=== PATIENT | female | born 1930 | race Caucasian/White ===

== ENCOUNTER 2016-08-16 08:40 | Inpatient (IN) | payer BC, OTHER ==
[~2016-08-16] VITALS: Ht 154.9 cm; Wt 38.9 kg
[~2016-08-16 08:40] MED LIST: ADVIN25050 INH; ASPCH81X PO; CALCTAB5 PO; KFL250 PO; LSN10 PO; RIVA4.6D TD; TPRSR/25 PO; ZOLE5INJ INJ
[2016-08-16] MEDS ORDERED: SODIUM CHLORIDE 0.9% 1000ML 1,000 ML IV SCH (09:05)
--- NOTE | 2016-08-16 09:15 | DIAGNOSTIC IMAGING REPORT ---
CT HEAD WITHOUT CONTRAST (CT) CLINICAL HISTORY: Acute change in mental status. Possible stroke COMPARISON STUDY: 05/20/2016 TECHNIQUE: Axial CT of the brain is performed from the vertex to the skull base. IV contrast was not administered for this examination. CT DOSE: 537.48 mGy.cm FINDINGS: No intra or extra-axial mass lesions are visualized. There is no CT evidence of acute cortical infarction. There is no evidence of midline shift. There is no acute hemorrhage. No calvarial fractures are visualized. There are patchy white matter hypodensities likely on a small vessel basis. There is stable mild ventricular dilatation, proportional to the degree of volume loss. There is asymmetric atrophy involving the left frontal and temporal lobes. This remain stable. There is no evidence of acute sinusitis IMPRESSION: No acute intracranial findings Electronically signed by: Aime Flores M.D. 08/16/2016 9:13 AM
[2016-08-16 09:37] LABS: PARTIAL THROMBOPLASTIN RATIO 1.1; PROTHROMBIN TIME (PATIENT) 10.6 SECONDS (9.0-12.0)
[2016-08-16 09:43] LABS: HEMATOCRIT 37.4 % (37-47); MEAN CORPUSCULAR HEMOGLOBIN 31.9 pg (25-34); MEAN PLATELET VOLUME 10.1 fL (7.4-10.4); PLATELET COUNT 228 K/uL (130-400); RED BLOOD COUNT 3.98 M/uL (4.2-5.4); WHITE BLOOD COUNT 4.42 K/uL (4.8-10.8)
[2016-08-16 09:50] LABS: BLOOD UREA NITROGEN 19 mg/dl (7-18); BUN/CREATININE RATIO 17.6 (10-20); CALCIUM 8.7 mg/dl (8.5-10.1); CARBON DIOXIDE 25 mmol/L (21-32); CHLORIDE 101 mmol/L (98-107); GLUCOSE 124 mg/dl (70-99); POTASSIUM 3.8 mmol/L (3.5-5.1); SODIUM 136 mmol/L (136-145)
[2016-08-16 09:58] LABS: MANUAL MICROSCOPIC REQUIRED? YES; URINE APPEARANCE CLEAR (CLEAR); URINE BILIRUBIN NEG (NEG); URINE COLOR YELLOW; URINE NITRITE NEG (NEG); UROBILINOGEN NEG (NEG)
[2016-08-16 10:03] LABS: REVIEW REQ? NO
[2016-08-16 10:17] LABS: BASO % 0.5 %; BASO ABS # 0.02 K/uL (0-0.2); COMPLETE YES; EOS % 2.9 %; IG% 0.2 %; LYMPH % 57.7 %; MONO % 17.2 %; NEUT % 21.5 %; SMUDGE CELLS PRESENT
[2016-08-16 10:45] LABS: URINE RBC 0-4 /hpf (0-4)
[2016-08-16 10:46] LABS: URINE BACTERIA 1+ (NEG)
[2016-08-16 10:47] LABS: ZZURINE CULT IF INDIC CATH YES
--- NOTE | 2016-08-16 11:13 | DIAGNOSTIC IMAGING REPORT ---
CHEST ONE VIEW PORTABLE CLINICAL HISTORY: change in ms dyspnea COMPARISON STUDY: 05/20/2016 FINDINGS: Lungs are considered clear. Stable emphysematous change. Thoracolumbar scoliosis similar to the prior study. IMPRESSION: Chronic and emphysematous change. No acute process. Electronically signed by: Viral Ivy M.D. 08/16/2016 11:11 AM
--- NOTE | 2016-08-16 12:09 | EMERGENCY ROOM VISIT NOTE ---
History Report prepared by Marbin: Elisa Spence Under the Supervision of: Dr. Sam Lafleur D.O. First contact with patient: 08:53 Chief Complaint: ALTERED MENTAL STATUS Stated Complaint: STOKE SYMPTOMS Nursing Triage Summary: PT HERE FROM HOME VIA ALS WITH CONFUSION AND ALTERED MENTAL STATUS. STATES PT WOKE UP THIS AM AND WAS ACTING PER HER NORMAL. AROUND 0800 PT BEGAN TO STARE AND WAS DAZED. PT NOT ANSWERING ANY QUESTIONS, RESPOND WAS INAPPROPRIATELY OR INCOMPREHENSIBLE. History of Present Illness The patient is an 86 year old female arriving by ambulance who presents to the Emergency Room with complaints of as per EMS report of an altered mental status which began 1 hour prior to arrival. Currently, the patient is not answering questions appropriately and she is not able to follow commands. When asked questions, the patient is answering with broken, incorrect words and she laughs when asked to raise her arms, legs, or touch her nose. Per EMS report, the patient woke up this morning and was acting at baseline. 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 Patient then lowered herself to the ground and became incomprehensible, so the ambulance was called by . Patient was not reported to have unilateral or generalized weakness throughout the episode. Speech is broken but not slurred. No facial droop reported. 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 Complete ROS unobtainable secondary to AMS. Source of History: EMS, nursing staff History Limited By: AMS Onset: 0800 Position: head Review of Systems Complete ROS unobtainable secondary to AMS. Past Medical & Surgical Medical Problems: (1) Hypertensive crisis (2) Rectal bleed Family History Patient reports no known family medical history. Social History Smoking Status: Never Smoker Drug Use: none Marital Status: Occupation Status: retired Current/Historical Medications Scheduled Calcium (Caltrate), 600 MG PO BID Fluticasone Prop/Salmeterol (Advair Diskus 250/50 Mcg *), 1 PUFF INH BID Metoprolol Succinate (Metoprolol Succinate ER), 25 MG PO DAILY Rivastigmine Tartrate (EXELON 4.6MG/24 Hr), 1 EA TD DAILY Zoledronic Acid (Reclast), 1 DOSE INJ YEARLY Allergies Coded Allergies: Azithromycin (Verified Allergy, Intermediate, GENERALIZED RASH, 08/16/16) Erythromycin (Verified Allergy, Intermediate, GENERALIZED RASH, 08/16/16) Penicillins (Verified Allergy, Intermediate, GENERALIZED RASH; AMOXICILLIN , 08/16/16) Sulfamethoxazole (Verified Allergy, Intermediate, GENERALIZED RASH, 08/16/16 ) Trimethoprim (Verified Allergy, Intermediate, GENERALIZED RASH, 08/16/16) Animal Dander (Verified Allergy, Mild, WATERY EYES, ITCHY, 08/16/16) DOG, CAT, HORSE HAIR Doxycycline (Verified Allergy, Mild, unknown, 08/16/16) Grass (Verified Allergy, Mild, WATERY EYES, ITCHY, 08/16/16) POLLEN (Verified Allergy, Mild, WATERY EYES, ITCHY, 08/16/16) Tramadol (Verified Allergy, Mild, unknown, 08/16/16) Celecoxib (Verified Allergy, Unknown, ., 08/16/16) Ciprofloxacin (Unverified Allergy, Unknown, unknown, 08/16/16) Physical Exam Vital Signs Date Time Temp Pulse Resp B/P Pulse Ox O2 Delivery O2 Flow Rate FiO2 08/16/16 10:47 77 18 142/80 08/16/16 10:08 81 24 157/108 93 Room Air 08/16/16 09:50 77 08/16/16 09:45 83 24 139/99 95 Room Air 08/16/16 09:30 75 18 145/81 94 Room Air 08/16/16 09:30 93 Room Air 08/16/16 08:49 36.7 76 16 141/77 92 Room Air Physical Exam CONSTITUTIONAL/VITAL SIGNS: Reviewed / noted above. GENERAL: Non-toxic in appearance. INTEGUMENTARY: Warm, dry, and [place]. HEAD: Normocephalic. EYES: without scleral icterus or trauma. ENT/OROPHARYNX: clear and moist. LYMPHADENOPATHY/NECK: Is supple without lymphadenopathy or meningismus. RESPIRATORY: Lungs clear and equal. CARDIOVASCULAR: Regular rate and rhythm. GI/ABDOMEN: Soft and nontender. No organomegaly or pulsatile mass. No rebound or guarding. Normal bowel sounds. EXTREMITIES: Warm and well perfused. BACK: No CVA tenderness. NEUROLOGICAL: Awake, alert, oriented. Uses wrong words with answering questions. She has difficulty at times following commands. No obvious focal deficits in the arms or legs. No appreciated facial weakness. PSYCHIATRIC: normal affect. MUSCULOSKELETAL: Normally developed with good muscle tone. Medical Decision & Procedures ER Provider Diagnostic Interpretation: CT results as stated below per my review and radiologist interpretation: CT HEAD WITHOUT CONTRAST (CT) CLINICAL HISTORY: Acute change in mental status. Possible stroke COMPARISON STUDY: 05/20/2016 TECHNIQUE: Axial CT of the brain is performed from the vertex to the skull base. IV contrast was not administered for this examination. CT DOSE: 537.48 mGy.cm FINDINGS: No intra or extra-axial mass lesions are visualized. There is no CT evidence of acute cortical infarction. There is no evidence of midline shift. There is no acute hemorrhage. No calvarial fractures are visualized. There are patchy white matter hypodensities likely on a small vessel basis. There is stable mild ventricular dilatation, proportional to the degree of volume loss. There is asymmetric atrophy involving the left frontal and temporal lobes. This remain stable. There is no evidence of acute sinusitis IMPRESSION: No acute intracranial findings Electronically signed by: Aime Flores M.D. 08/16/2016 9:13 AM Laboratory Results 08/16/16 08:50 Red Blood Count 3.98, Mean Corpuscular Volume 94.0, Mean Corpuscular Hemoglobin 31.9, Mean Corpuscular Hemoglobin Concent 34.0, Mean Platelet Volume 10.1, Neutrophils (%) (Auto) 21.5, Lymphocytes (%) (Auto) 57.7, Monocytes (%) (Auto) 17.2, Eosinophils (%) (Auto) 2.9, Basophils (%) (Auto) 0.5, Neutrophils # (Auto ) 0.95, Lymphocytes # (Auto) 2.55, Monocytes # (Auto) 0.76, Eosinophils # (Auto ) 0.13, Basophils # (Auto) 0.02 08/16/16 08:50 Test 08/16/16 08:50 08/16/16 09:16 08/16/16 09:40 White Blood Count 4.42 K/uL (4.8-10.8) Red Blood Count 3.98 M/uL (4.2-5.4) Hemoglobin 12.7 g/dL (12.0-16.0) Hematocrit 37.4 % (37-47) Mean Corpuscular Volume 94.0 fL (80-100) Mean Corpuscular Hemoglobin 31.9 pg (25-34) Mean Corpuscular Hemoglobin Concent 34.0 g/dl (32-36) Platelet Count 228 K/uL (130-400) Mean Platelet Volume 10.1 fL (7.4-10.4) Neutrophils (%) (Auto) 21.5 % Lymphocytes (%) (Auto) 57.7 % Monocytes (%) (Auto) 17.2 % Eosinophils (%) (Auto) 2.9 % Basophils (%) (Auto) 0.5 % Neutrophils # (Auto) 0.95 K/uL (1.4-6.5) Lymphocytes # (Auto) 2.55 K/uL (1.2-3.4) Monocytes # (Auto) 0.76 K/uL (0.11-0.59) Eosinophils # (Auto) 0.13 K/uL (0-0.5) Basophils # (Auto) 0.02 K/uL (0-0.2) RDW Standard Deviation 46.9 fL (36.4-46.3) RDW Coefficient of Variation 13.6 % (11.5-14.5) Immature Granulocyte % (Auto) 0.2 % Immature Granulocyte # (Auto) 0.01 K/uL (0.00-0.02) Smudge Cells PRESENT Prothrombin Time 10.6 SECONDS (9.0-12.0) Prothromb Time International Ratio 1.0 (0.9-1.1) Activated Partial Thromboplast Time 27.9 SECONDS (21.0-31.0) Partial Thromboplastin Ratio 1.1 Anion Gap 10.0 mmol/L (3-11) Est Creatinine Clear Calc Drug Dose 28.2 ml/min Estimated GFR () 53.0 Estimated GFR (Non- 45.7 BUN/Creatinine Ratio 17.6 (10-20) Calcium Level 8.7 mg/dl (8.5-10.1) Total Creatine Kinase 111 U/L (26-192) Creatine Kinase MB 2.2 ng/ml (0.5-3.6) Creatine Kinase MB Ratio 2.0 (0-3.0) Troponin I < 0.015 ng/ml (0-0.045) Chemistry Specimen Hemolysis Bedside Glucose 106 mg/dl (70-90) Urine Color YELLOW Urine Appearance CLEAR (CLEAR) Urine pH 6.0 (4.5-7.5) Urine Specific [place] 1.010 (1.000-1.030) Urine Protein NEG (NEG) Urine Glucose (UA) NEG (NEG) Urine Ketones NEG (NEG) Urine Occult Blood TRACE (NEG) Urine Nitrite NEG (NEG) Urine Bilirubin NEG (NEG) Urine Urobilinogen NEG (NEG) Urine Leukocyte Esterase NEG (NEG) Urine RBC 0-4 /hpf (0-4) Urine WBC 5-10 /hpf (0-5) Urine Epithelial Cells 10-20 /lpf (0-5) Urine Bacteria 1+ (NEG) Laboratory results as stated above per my review. Medications Administered Medications (Trade) Dose Ordered Sig/Brien Route Start Time Stop Time Status Last Admin Dose Admin Sodium Chloride (Nss 1000ml) 1,000 ml @ 50 mls/hr Q20H IV 08/16/16 09:05 09/15/16 09:04 08/16/16 09:50 50 MLS/HR ECG Indication: altered mental status Rate (beats per minute): 84 Rhythm: sinus rhythm Findings: PAC, PVC, no acute ischemic change ED Course 0854: Previous medical records were reviewed. The patient was evaluated in room B6. A complete history and physical examination was performed. 0900: Stroke alert was called. 0905: NSS 1,000 ml @ 50 mls/hr IV was ordered. 0930: After discussion with Dr. Watson of neurology as well as review of the patient's note from March and Dr. Vasquez's description of her baseline neurological assessment at that time, decision was made to proceed with the evaluation of the patient without thrombolytics as benefit was felt to be minimal. 1100: Patient's arrived to the ED. He stated that she seems to be acting at baseline right now, which is the same as when she first arrived. Per his report, at the time of onset today, the patient suddenly became weak in the legs and sat down on the floor. She did not lose consciousness during the episode, but she would not respond to his questioning. Patient's says that it is hard to have a conversation with her at baseline secondary to her history of dementia, which is chronic. However, he states that he is not comfortably taking her home because he is concerned that she might have another episode of generalized weakness and worsening mental status. I discussed the results of the patient's radiology reports and lab tests with him. The hospitalist will be contacted. 1110: After discussion with Dr. Marina, the patient will continue to be evaluated by the [facility] hospitalist for further management. The patient's verbalized his understanding and agreement with this treatment plan. Medical Decision Differential diagnosis: Etiologies such as metabolic, infection, hypoglycemia, electrolyte abnormalities , cardiac sources, intracerebral event, toxicologic, neurologic, as well as others were entertained. This is an 86-year-old female who presents to the ED with a chief complaint of having an episode where she collapsed while in the kitchen. The witnessed this. She did not fall. She "melted to the ground". She was not unresponsive. She had her eyes open and was staring. She would not respond to him. The patient was brought in by EMS. She was initially felt to be a stroke alert because of her expressive aphasia although after talking to the , who arrived much later, states that this is normal for her. Also I reviewed a previous note from March in which Dr. Vasquez described her exam very similar to what her current exam is. The patient's initial exam reveals a pleasant female in no acute distress. She has some difficulty with word finding as well as with reading and describing pictures. She has no focal weakness of the extremities or face. Her exam was otherwise unremarkable. CT scan of the brain did not show any acute process. Chest x-ray was no acute disease. EKG did not show any acute process or dysrhythmia. Blood work including a CBC, complete metabolic panel and urine did not show acute abnormalities. The patient was evaluated and reassessed when the was here. He states that he does not feel comfortable with her going home today because he is old and he is concerned that what happened at home today might happen again. I spoke with the hospitalist service, who will see the patient for further inpatient care and evaluation. Consults Time Called: 09 Consulting Physician: Dr. Watson - neurology Returned Call: [phone] Discussed the patient's case as well as her previous visit and presentation in March. It was agreed that thrombolytics should not be administered as benefits were felt to be minimal. Additional Consults: Time Called: [phone] Consulted Physician: Dr. Marina - [facility] Returned Call: [phone] Additional Comments: Discussed the patient's case. She will continue to be evaluated by the [facility] hospitalist for further management. Impression Primary Impression: Weakness Additional Impression: Altered mental status, unspecified Scribe Attestation The scribe's documentation has been prepared under my direction and personally reviewed by me in its entirety. I confirm that the note above accurately reflects all work, treatment, procedures, and medical decision making performed by me. Departure Information Dispostion Being Evaluated By Hospitalist ([facility]) Referrals Leon Bustillo M.D. (PCP)
--- NOTE | 2016-08-16 12:17 | History and Physical ---
History & Physical Date & Time of Service: Aug 16, 2016 at 12:03 Chief Complaint: Stoke Symptoms Primary Care Physician: Leon Bustillo M.D. History of Present Illness Source: patient, family, hospital records This patient is an 86-year-old female that was brought into the emergency department by ambulance today for an episode of altered mental status. The patient has a history of dementia. Most of the history is taken from the patient's who is at the bedside. He states that she walked into the kitchen today. She was staring at the kitchen cabinets when she went unresponsive and shrunk down to the floor. The patient was unable to get up. She laid on the floor for approximately 45 minutes. She kept repeating "I can get up." The patient's was not able to get her off the floor, so he called the EMS. The patient currently has no complaints. She denies any dizziness, heart palpitations, shortness of breath or chest pain. She denies any abdominal pain. She denies any headaches or changes in vision. There was no reported incontinence. No seizure-like activity. Past Medical/Surgical History Dementia Asthma Hypertension Osteoporosis Family History Patient reports no known family medical history. Father- of a heart attack at an elderly age Mother was hit by a car in her 70s Social History Smoking Status: Never Smoker Alcohol Use: none Drug Use: none Marital Status: Housing status: lives with significant other Occupational Status: retired Immunizations History of Influenza Vaccine: Yes Influenza Vaccine Date: May 14, 2008 History of Tetanus Vaccine?: Yes History of Pneumococcal: Yes History of Hepatitis B Vaccine: No Multi-Drug Resistant Organisms History of MDRO: No Allergies Coded Allergies: Azithromycin (Verified Allergy, Intermediate, GENERALIZED RASH, 08/16/16) Erythromycin (Verified Allergy, Intermediate, GENERALIZED RASH, 08/16/16) Penicillins (Verified Allergy, Intermediate, GENERALIZED RASH; AMOXICILLIN , 08/16/16) Sulfamethoxazole (Verified Allergy, Intermediate, GENERALIZED RASH, 08/16/16 ) Trimethoprim (Verified Allergy, Intermediate, GENERALIZED RASH, 08/16/16) Animal Dander (Verified Allergy, Mild, WATERY EYES, ITCHY, 08/16/16) DOG, CAT, HORSE HAIR Doxycycline (Verified Allergy, Mild, unknown, 08/16/16) Grass (Verified Allergy, Mild, WATERY EYES, ITCHY, 08/16/16) POLLEN (Verified Allergy, Mild, WATERY EYES, ITCHY, 08/16/16) Tramadol (Verified Allergy, Mild, unknown, 08/16/16) Celecoxib (Verified Allergy, Unknown, ., 08/16/16) Ciprofloxacin (Unverified Allergy, Unknown, unknown, 08/16/16) Home Medications Scheduled Calcium (Caltrate), 600 MG PO BID Fluticasone Prop/Salmeterol (Advair Diskus 250/50 Mcg *), 1 PUFF INH BID Metoprolol Succinate (Metoprolol Succinate ER), 25 MG PO DAILY Rivastigmine Tartrate (EXELON 4.6MG/24 Hr), 1 EA TD DAILY Zoledronic Acid (Reclast), 1 DOSE INJ YEARLY Review of Systems 10 system review performed and negative unless noted in HPI or below Physical Exam Vital Signs Date Time Temp Pulse Resp B/P Pulse Ox O2 Delivery O2 Flow Rate FiO2 08/16/16 10:47 77 18 142/80 08/16/16 10:08 81 24 157/108 93 Room Air 08/16/16 09:50 77 08/16/16 09:45 83 24 139/99 95 Room Air 08/16/16 09:30 75 18 145/81 94 Room Air 08/16/16 09:30 93 Room Air 08/16/16 08:49 36.7 76 16 141/77 92 Room Air General Appearance: no apparent distress Head: normocephalic Eyes: EOMI Neck: no JVD Respiratory/Chest: lungs clear Cardiovascular: regular rate, rhythm, no murmur Abdomen/GI: normal bowel sounds, non tender, soft Extremities/Musculoskelatal: no calf tenderness, no pedal edema Neurologic/Psych: alert, + pertinent finding (answers some questions appropriately. Strength equal bilaterally.) Skin: warm/dry Diagnostics Laboratory Results Results Past 24 Hours Test 08/16/16 08:50 08/16/16 09:16 08/16/16 09:40 Range/Units White Blood Count 4.42 4.8-10.8 K/uL Red Blood Count 3.98 4.2-5.4 M/uL Hemoglobin 12.7 12.0-16.0 g/dL Hematocrit 37.4 37-47 % Mean Corpuscular Volume 94.0 80-100 fL Mean Corpuscular Hemoglobin 31.9 25-34 pg Mean Corpuscular Hemoglobin Concent 34.0 32-36 g/dl Platelet Count 228 130-400 K/uL Mean Platelet Volume 10.1 7.4-10.4 fL Neutrophils (%) (Auto) 21.5 % Lymphocytes (%) (Auto) 57.7 % Monocytes (%) (Auto) 17.2 % Eosinophils (%) (Auto) 2.9 % Basophils (%) (Auto) 0.5 % Neutrophils # (Auto) 0.95 1.4-6.5 K/uL Lymphocytes # (Auto) 2.55 1.2-3.4 K/uL Monocytes # (Auto) 0.76 0.11-0.59 K/uL Eosinophils # (Auto) 0.13 0-0.5 K/uL Basophils # (Auto) 0.02 0-0.2 K/uL RDW Standard Deviation 46.9 36.4-46.3 fL RDW Coefficient of Variation 13.6 11.5-14.5 % Immature Granulocyte % (Auto) 0.2 % Immature Granulocyte # (Auto) 0.01 0.00-0.02 K/uL Smudge Cells PRESENT Prothrombin Time 10.6 9.0-12.0 SECONDS Prothromb Time International Ratio 1.0 0.9-1.1 Activated Partial Thromboplast Time 27.9 21.0-31.0 SECONDS Partial Thromboplastin Ratio 1.1 Sodium Level 136 136-145 mmol/L Potassium Level 3.8 3.5-5.1 mmol/L Chloride Level 101 98-107 mmol/L Carbon Dioxide Level 25 21-32 mmol/L Anion Gap 10.0 3-11 mmol/L Blood Urea Nitrogen 19 7-18 mg/dl Creatinine 1.10 0.60-1.20 mg/dl Est Creatinine Clear Calc Drug Dose 28.2 ml/min Estimated GFR () 53.0 Estimated GFR (Non- 45.7 BUN/Creatinine Ratio 17.6 10-20 Random Glucose 124 70-99 mg/dl Calcium Level 8.7 8.5-10.1 mg/dl Total Creatine Kinase 111 26-192 U/L Creatine Kinase MB 2.2 0.5-3.6 ng/ml Creatine Kinase MB Ratio 2.0 0-3.0 Troponin I < 0.015 0-0.045 ng/ml Chemistry Specimen Hemolysis Bedside Glucose 106 70-90 mg/dl Urine Color YELLOW Urine Appearance CLEAR CLEAR Urine pH 6.0 4.5-7.5 Urine Specific [place] 1.010 1.000-1.030 Urine Protein NEG NEG Urine Glucose (UA) NEG NEG Urine Ketones NEG NEG Urine Occult Blood TRACE NEG Urine Nitrite NEG NEG Urine Bilirubin NEG NEG Urine Urobilinogen NEG NEG Urine Leukocyte Esterase NEG NEG Urine RBC 0-4 0-4 /hpf Urine WBC 5-10 0-5 /hpf Urine Epithelial Cells 10-20 0-5 /lpf Urine Bacteria 1+ NEG Microbiology Results 08/16/16 Urine Culture, Received Pending Diagnostic Radiology Patient Name: ELIDA REARDON Unit Number: [id number] Dictated: 08/16/161102 Transcribed: 08/16/16 110 MS Printed Date/Time: [~ rep prt dt]/[~ rep prt tm] [~ rep ct labl] - [~ rep ct ivnm] [facility] [place] [address] Dictated: 08/16/161102 Transcribed: 08/16/16 1103 MS Printed Date/Time: [~ rep prt dt]/[~ rep prt tm] [~ rep ct labl] - [~ rep ct ivnm] Patient: ELIDA REARDON Address1: [address] [place] [address] Rec: [id number] Address2: Acct ID: [id number] [facility] Zip: [place] [address] Date: 1930 Sex: F Room/Bed: Ref Phy: Leon Bustillo M.D. SC: NATALYA Att Phy: Report #: [id number] Kassie Phy: Leon Bustillo M.D. Test: CXR1P Admit Phy: Information Systems Security Analyst: BROOK Interpreting Phy: Viral Ivy M.D. Diagnosis: STOKE SYMPTOMS Ordering Phy: Sam Lafleur D.O. Service Date: 08/16/16 Admit Date: 08/16/16 MNE: PWRSCRIBE CONF: DICTATED BY: Viral Ivy M.D.]] CC: Leon Bustillo M.D. Mishock, Kevin D.O. Endcc: [~ rep ct add3]] CHEST ONE VIEW PORTABLE CLINICAL HISTORY: change in ms dyspnea COMPARISON STUDY: 05/20/2016 FINDINGS: Lungs are considered clear. Stable emphysematous change. Thoracolumbar scoliosis similar to the prior study. IMPRESSION: Chronic and emphysematous change. No acute process. Electronically signed by: Viral Ivy M.D. 08/16/2016 11:11 AM The status of this report is Signed. Draft = Not yet reviewed or approved by Radiologist. Signed = Reviewed and approved by Radiologist. <AttendingPhy></AttendingPhy> <FamilyPhy>Leon Bustillo M.D.</FamilyPhy> < PrimaryPhy>Leon Bustillo M.D.</PrimaryPhy> <UnitNumber>[id number]</ UnitNumber> <VisitNumber>[id number]</VisitNumber> <PatientName>ELIDA REARDON</PatientName> <DateOfBirth>1930</DateOfBirth> <Location>C.EDB</ Location> <ServiceDate>08/16/16</ServiceDate> <MNE>ESINDI</MNE> <OrderingPhy> Sam Lafleur D.O.</OrderingPhy> <OrderingPhyMNE>f rep ord dr freeman</ OrderingPhyMNE> <DictatingPhyMNE>f rep dict dr freeman</DictatingPhyMNE> <CCListMNE> f rep ct mne</CCListMNE> <AdmittingPhyMNE>f pt admit dr freeman</AdmittingPhyMNE> < AttendingPhyMNE>f pt attend dr freeman</AttendingPhyMNE> <ConsultingPhyMNE>f pt consult dr freeman</ConsultingPhyMNE> <FamilyPhyMNE>f pt fam dr freeman</FamilyPhyMNE> <OtherPhyMNE>f pt other dr freeman</OtherPhyMNE> < PrimaryPhyMNE>f pt prim care dr freeman</PrimaryPhyMNE> <ReferringPhyMNE>f pt referring dr freeman</ReferringPhyMNE> Patient Name: ELIDA REARDON Unit Number: [id number] Dictated: 08/16/16910 Transcribed: 08/16/16910 ARG Printed Date/Time: [~ rep prt dt]/[~ rep prt tm] [~ rep ct labl] - [~ rep ct ivnm] [facility] [place] [address] Dictated: 08/16/16910 Transcribed: 08/16/16910 ARG Printed Date/Time: [~ rep prt dt]/[~ rep prt tm] [~ rep ct labl] - [~ rep ct ivnm] Patient: ELIDA REARDON Address1: [address] [place] [address] Rec: [id number] Address2: Acct ID: [id number] [facility] Zip: [place] [address] Date: 1930 Sex: F Room/Bed: Ref Phy: Leon Bustillo M.D. SC: NATALYA Att Phy: Report #: [id number] Kassie Phy: Leon Bustillo M.D. Test: HWO Admit Phy: Information Systems Security Analyst: JANTETE Interpreting Phy: Aime Flores M.D. Diagnosis: STOKE SYMPTOMS Ordering Phy: Sam Lafleur D.O. Service Date: 08/16/16 Admit Date: 08/16/16 MNE: PWRSCRIBE CONF: DICTATED BY: Aime Flores M.D.]] CC: Leon Bustillo M.D. Mishock, Kevin, D.O. Endcc: [~ rep ct add3]] CT HEAD WITHOUT CONTRAST (CT) CLINICAL HISTORY: Acute change in mental status. Possible stroke COMPARISON STUDY: 05/20/2016 TECHNIQUE: Axial CT of the brain is performed from the vertex to the skull base. IV contrast was not administered for this examination. CT DOSE: 537.48 mGy.cm FINDINGS: No intra or extra-axial mass lesions are visualized. There is no CT evidence of acute cortical infarction. There is no evidence of midline shift. There is no acute hemorrhage. No calvarial fractures are visualized. There are patchy white matter hypodensities likely on a small vessel basis. There is stable mild ventricular dilatation, proportional to the degree of volume loss. There is asymmetric atrophy involving the left frontal and temporal lobes. This remain stable. There is no evidence of acute sinusitis IMPRESSION: No acute intracranial findings Electronically signed by: Aime Flores M.D. 08/16/2016 9:13 AM The status of this report is Signed. Draft = Not yet reviewed or approved by Radiologist. Signed = Reviewed and approved by Radiologist. <AttendingPhy></AttendingPhy> <FamilyPhy>Leon Bustillo M.D.</FamilyPhy> < PrimaryPhy>Leon Bustillo M.D.</PrimaryPhy> <UnitNumber>[id number]</ UnitNumber> <VisitNumber>[id number]</VisitNumber> <PatientName>ELIDA REARDON</PatientName> <DateOfBirth>1930</DateOfBirth> <Location>C.EDB</ Location> <ServiceDate>08/16/16</ServiceDate> <MNE>ESINDI</MNE> <OrderingPhy> Sam Lafleur D.O.</OrderingPhy> <OrderingPhyMNE>f rep ord dr freeman</ OrderingPhyMNE> <DictatingPhyMNE>f rep dict dr freeman</DictatingPhyMNE> <CCListMNE> f rep ct murtazae</CCListMNE> <AdmittingPhyMNE>f pt admit dr freeman</AdmittingPhyMNE> < AttendingPhyMNE>f pt attend dr freeman</AttendingPhyMNE> <ConsultingPhyMNE>f pt consult dr freeman</ConsultingPhyMNE> <FamilyPhyMNE>f pt fam dr freeman</FamilyPhyMNE> <OtherPhyMNE>f pt other dr freeman</OtherPhyMNE> < PrimaryPhyMNE>f pt prim care dr freeman</PrimaryPhyMNE> <ReferringPhyMNE>f pt referring dr freeman</ReferringPhyMNE> EKG Sinus rhythm with PVCs noted Rate 84 bpm No acute ischemic changes noted Impression Assessment and Plan 86-year-old female presents emergency department with an episode of altered mental status this morning. ? TIA vs seizure vs baseline dementia -Admit to telemetry -Neuro checks every 4 hours -MRI brain combo -Trend cardiac enzymes -US carotids -Consider EEG -PT/OT -Hold off on ASA for now-pt has hx of GI bleed HTN -Continue Metoprolol XL 25 mg daily Asthma-stable -Continue Advair BID Dementia -Exelon was d/c'ed due to elevated BP -Continue Aricept 10 mg daily DVT prophylaxis -Heparin BID -TEDS, SCDs CODE STATUS -LEVEL I FULL CODE Level of Care Telemetry Resuscitation Status FULL RESUSCITATION VTE Prophylaxis VTE Risk Assessment Done? Y/N: Yes Risk Level: Low Given or contraindicated: Unfractionated heparin SQ, T.E.D. Stockings, SCD's Reviewed: Pt Seen/Exam by Me, RN Notes, HO Notes, Prior Records, Labs, RAD, EKG History Resident Physician Supervision Note: I was present with Humaira Deshpande during the history and exam. I discussed the case with the resident and agree with the findings and plan as documented in the note. Any exceptions or clarifications are listed here: Documented By: Ruel Rivera 86-year-old female presents emergency department with an episode of altered mental status this morning. ? TIA vs seizure vs baseline dementia. History from patient is unreliable. ROS is limited Constitutional: denies: chills Gastrointestinal/Abdominal: negative: abdominal pain General Appearance: WD/WN, no apparent distress Eye Exam: bilateral eye normal inspection Ears, Nose, Throat: hearing grossly normal, pharynx normal Neck: non-tender, supple Respiratory: chest non-tender, normal breath sounds Cardiovascular: normal peripheral pulses, no edema Gastrointestinal: normal bowel sounds, no organomegaly Extremities: normal range of motion, normal inspection Neurologic/Psychiatric: aphasia, disoriented x 3 Skin Characteristics: normal color Assessment/Plan 86-year-old female presents emergency department with an episode of altered mental status this morning. ? TIA vs seizure vs baseline dementia TIA vs Seizures Admit to telemetry continue Neuro checks every 4 hours check EEG check MRI brain combo Trend cardiac enzymes US carotids is unremarkable check PT/OT Hold off on ASA for now due to hx of GI bleed Hx Dementia, appears at baseline Exelon was d/c'ed due to elevated BP Continue Aricept 10 mg daily HTN Continue Metoprolol XL 25 mg daily Asthma-stable Continue Advair BID DVT prophylaxis Heparin sq BID TEDS, SCDs CODE STATUS: FULL CODE case discussed with LAM Deshpande time spent 50 min
[2016-08-16] MEDS ORDERED: PHARMACIST DISCHARGE MED REC CONSULT PRN (12:30)
[2016-08-16 12:45] VITALS: O2SAT 93; Ht 154.9 cm; Wt 38.9 kg
[2016-08-16 13:28] LABS: ESTIMATED AVERAGE GLUCOSE 114 mg/dl; HA1C FLAG Normal (Normal)
--- NOTE | 2016-08-16 14:01 | DIAGNOSTIC IMAGING REPORT ---
BILATERAL CAROTID DOPPLER STUDY HISTORY: Mental status change Stroke COMPARISON: None. TECHNIQUE: Real-time, grayscale, and color Doppler sonography of the carotid arteries was performed. Imaging reviewed in the transverse and longitudinal planes. All measurements were calculated based on NASCET criteria. FINDINGS: Antegrade flow is seen in the bilateral vertebral arteries. The brachial pressures are hemodynamically similar. Moderate plaque formation laterally The peak systolic velocity within the right ICA is 86. The right systolic ratio is 0.9. The peak systolic velocity within the left ICA is 75. The left systolic ratio is 0.8. IMPRESSION: Moderate plaque formation bilaterally. No significant stenotic process. Electronically signed by: Viral Ivy M.D. 08/16/2016 1:59 PM
[2016-08-16 14:37] VITALS: BP 167/82; PULSE 84; TEMP 36.5; O2SAT 95
[2016-08-16] MEDS ORDERED: IV FLUIDS COMPLETED PRN (14:45)
[2016-08-16 19:10] LABS: CKMB/CK RATIO 2.3 (0-3.0)
[2016-08-16 19:54] VITALS: BP 122/67; PULSE 80; TEMP 36.7; O2SAT 93
[2016-08-16] MEDS ORDERED: GADAVIST IV PRN (21:15)
[2016-08-16] MEDS: FLUTICASONE/SALMETEROL 250/50 (ADVAIR) 14 PUFF/1 INHALER INH SCH (21:41)
[2016-08-16] MEDS: CALCIUM 600MG + VIT D 400 IU TAB PO SCH (21:41)
[2016-08-16] MEDS: HEPARIN SOD 5000 UNIT/0.5 ML CARP SQ SCH (21:42)
--- NOTE | 2016-08-16 22:38 | DIAGNOSTIC IMAGING REPORT ---
Brain MRI WITH AND WITHOUT CONTRAST HISTORY: Change in mental status. Stroke TECHNIQUE: Multiplanar multisequence MRI of the brain was performed both before and after the intravenous administration of contrast. COMPARISON STUDY: Head CT 08/16/2016. FINDINGS: There is no mass, hematoma, midline shift, or acute infarct. The paranasal sinuses are clear. The mastoid or cells are clear. The ventricles and sulci demonstrate moderate age-related involutional changes. Scattered foci of T2 hyperintensity seen within the periventricular and subcortical white matter are nonspecific but suggestive of moderate microvascular ischemic changes. The major vascular flow voids at the skull base are well-maintained. Asymmetric severe left anterior temporal lobe atrophy is again noted. 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 IMPRESSION: No significant change compared to the prior study. No acute intracranial abnormality. Chronic changes as described above. Electronically signed by: Josue Marley M.D. 08/16/2016 10:36 PM
[2016-08-17 00:25] VITALS: BP 123/53; PULSE 83; TEMP 36.7; O2SAT 92
[2016-08-17 02:49] LABS: CKMB/CK RATIO 1.8 (0-3.0)
[2016-08-17 05:02] VITALS: BP 134/80; PULSE 85; TEMP 36.8; O2SAT 93
[2016-08-17 06:30] LABS: HEMATOCRIT 32.6 % (37-47); MEAN CELL VOLUME 91.6 fL (80-100); MEAN CORPUSCULAR HEMOGLOBIN 31.2 pg (25-34); MEAN PLATELET VOLUME 9.8 fL (7.4-10.4); PLATELET COUNT 210 K/uL (130-400); RED BLOOD COUNT 3.56 M/uL (4.2-5.4); WHITE BLOOD COUNT 4.12 K/uL (4.8-10.8)
[2016-08-17 07:00] LABS: BUN/CREATININE RATIO 29.3 (10-20); CALCIUM 8.4 mg/dl (8.5-10.1); CREATININE 0.87 mg/dl (0.60-1.20); POTASSIUM 3.7 mmol/L (3.5-5.1)
[2016-08-17 07:04] LABS: CHOLESTEROL/HDL RATIO 2.5
[2016-08-17 07:37] LABS: BASO % 0.5 %; BASO ABS # 0.02 K/uL (0-0.2); COMPLETE YES; EOS % 1.9 %; IG% 0.2 %; LYMPH % 50.2 %; LYMPH ABS # 2.07 K/uL (1.2-3.4); MONO % 17.7 %; NEUT % 29.5 %
[2016-08-17 07:42] LABS: LYMPH ABS # 2.55 K/uL (1.2-3.4)
[2016-08-17 07:44] VITALS: BP 153/74; PULSE 74; TEMP 37; O2SAT 93
[2016-08-17] MEDS: CALCIUM 600MG + VIT D 400 IU TAB PO SCH ×2 (07:52→19:32)
[2016-08-17] MEDS: FLUTICASONE/SALMETEROL 250/50 (ADVAIR) 14 PUFF/1 INHALER INH SCH ×2 (07:52→19:32)
[2016-08-17] MEDS: METOPROLOL SUCC 25MG EXT REL TAB PO SCH (07:52)
[2016-08-17] MEDS: DONEPEZIL HCL 10 MG TAB PO SCH (07:52)
[2016-08-17] MEDS: HEPARIN SOD 5000 UNIT/0.5 ML CARP SQ SCH ×2 (07:53→19:31)
[2016-08-17] MEDS ORDERED: ASPIRIN 81 MG ECTAB PO SCH (09:00)
--- NOTE | 2016-08-17 09:46 | EEG Procedure Note ---
EEG Procedure Note Date of Service Aug 17, 2016. Start / End Times Start Time: 7:58am End Time: 8:18am Referring Physician Humaira Deshpande PA-C History This is a 86-year-old female who presents with altered mental status. EEG for further evaluation of possible seizure etiology. Home Medication List Scheduled Calcium (Caltrate), 600 MG PO BID Fluticasone Prop/Salmeterol (Advair Diskus 250/50 Mcg *), 1 PUFF INH BID Metoprolol Succinate (Metoprolol Succinate ER), 25 MG PO DAILY Rivastigmine Tartrate (EXELON 4.6MG/24 Hr), 1 EA TD DAILY Zoledronic Acid (Reclast), 1 DOSE INJ YEARLY Inpatient Medication List Current Inpatient Medications Medications (Trade) Dose Ordered Sig/Brien Route Start Time Stop Time Status Last Admin Dose Admin Miscellaneous Information (Pharmacist Discharge Med Rec Consult) 1 ea UD PRN N/A 08/16/16 12:30 09/15/16 12:29 Salmeterol Xinafoate/ Fluticasone (Advair Diskus 250/50 Inh) 1 puff BID INH 08/16/16 21:00 09/15/16 20:59 08/17/16 07:52 1 PUFF Metoprolol Succinate (Toprol Xl Tab) 25 mg DAILY PO 08/17/16 09:00 09/16/16 08:59 08/17/16 07:52 25 MG Calcium/Vitamin D (Caltrate Plus Tab) 1 tab BID PO 08/16/16 21:00 09/15/16 20:59 08/17/16 07:52 1 TAB Donepezil HCl (Aricept Tab) 10 mg QAM PO 08/17/16 09:00 09/16/16 08:59 08/17/16 07:52 10 MG Heparin Sodium (Porcine) (Heparin Sq 5000 Unit/0.5ml) 5,000 unit Q12 SQ 08/16/16 21:00 09/15/16 20:59 08/17/16 07:53 5,000 UNIT Miscellaneous (Iv Fluids Completed) 1 ea PRN PRN N/A 08/16/16 14:45 08/16/17 14:44 Gadobutrol (Gadavist) 4 mmol UD PRN IV 08/16/16 21:15 08/20/16 21:14 Description This is a 21 electrode EEG with a single channel dedicated to limited EKG. The electrodes were placed in accordance with the International 10-20 system. There was frequent intermittent muscle artifact and movement artifact throughout the recording sometimes limiting a detailed read of this EEG. At the start of the recording the patient was in altered mental status. Background was poorly organized with no well formed anterior to posterior gradient. The background was composed of symmetric moderate amplitude predominantly 7-8 Hz theta frequencies with intermixed alpha and beta frequencies. Hyperventilation and photic stimulation were not done secondary to mental status. There was no state changes or sleep transients. Interpretation This is an abnormal routine EEG secondary to mild to moderate diffuse background disorganization and slowing. There was no electrographic seizures or epileptiform discharges. Clinical Correlation This EEG indicates a mild to moderate encephalopathy of nonspecific etiology.
[2016-08-17 11:28] VITALS: BP 179/79; PULSE 79; TEMP 36.6; O2SAT 95
--- NOTE | 2016-08-17 13:32 | Hospitalist Progress Note ---
Hospitalist Progress Note Date of Service Aug 17, 2016. (Humaira Deshpande PA-C) 08/17/16 agree with PA note (Ruel Rivera MD) Subjective Pt evaluation today including: conversation w/ patient, conversation w/ family pt feeling fine today. No complaints. No CP, SOB, dizziness Additional Comments: 6 system review negative. Please see pertinent positives in the history of present illness section. (Humaira Deshpande PA-C) Pt evaluation today including: conversation w/ patient, physical exam, chart review, review of studies, review of inpatient medication list Constitutional: No fever ENT: No hearing loss Respiratory: No cough Cardiovascular: No chest pain Abdomen: No pain Female : No dysuria Neurologic: No memory loss Psychiatric: No depression symptoms Heme: No abnormal bleeding/bruising Skin: No rash (Ruel Rivera MD) Objective Vital Signs Date Time Temp Pulse Resp B/P Pulse Ox O2 Delivery O2 Flow Rate FiO2 08/17/16 11:28 36.6 79 18 179/79 95 Room Air 08/17/16 08:00 Room Air 08/17/16 07:44 37.0 74 18 153/74 93 Room Air 08/17/16 05:02 36.8 85 16 134/80 93 Room Air 08/17/16 04:04 Room Air 08/17/16 00:25 36.7 83 20 123/53 92 Room Air 08/17/16 00:00 Room Air 08/16/16 20:00 Room Air 08/16/16 19:54 36.7 80 18 122/67 93 Room Air 08/16/16 16:00 Room Air 08/16/16 14:37 36.5 84 22 167/82 95 Room Air (Humaira Deshpande PA-C) Physical Exam General Appearance: no apparent distress Eyes: EOMI Neck: no JVD Respiratory/Chest: lungs clear Cardiovascular: + irregularly irregular Abdomen: normal bowel sounds, non tender, soft Extremities: non-tender, no pedal edema Neurologic/Psychiatric: alert (alert and oriented to person only. Answers some questions appropriately, transient confusion noted.) Skin: warm/dry (Humaira Deshpande PA-C) General Appearance: WD/WN, no apparent distress Eyes: normal inspection, EOMI ENT: hearing grossly normal, pharynx normal Neck: supple, no JVD Respiratory/Chest: chest non-tender Cardiovascular: + irregularly irregular Abdomen: normal bowel sounds Extremities: normal range of motion, normal inspection Neurologic/Psychiatric: alert (Ruel Rivera MD) Laboratory Results 08/17/16 06:05 Red Blood Count 3.56, Mean Corpuscular Volume 91.6, Mean Corpuscular Hemoglobin 31.2, Mean Corpuscular Hemoglobin Concent 34.0, Mean Platelet Volume 9.8, Neutrophils (%) (Auto) 29.5, Lymphocytes (%) (Auto) 50.2, Monocytes (%) (Auto) 17.7, Eosinophils (%) (Auto) 1.9, Basophils (%) (Auto) 0.5, Neutrophils # (Auto ) 1.21, Lymphocytes # (Auto) 2.07, Monocytes # (Auto) 0.73, Eosinophils # (Auto ) 0.08, Basophils # (Auto) 0.02 08/17/16 06:05 Test 08/17/16 02:04 08/17/16 06:05 Total Creatine Kinase 71 U/L (26-192) Creatine Kinase MB 1.3 ng/ml (0.5-3.6) Creatine Kinase MB Ratio 1.8 (0-3.0) Troponin I < 0.015 ng/ml (0-0.045) White Blood Count 4.12 K/uL (4.8-10.8) Red Blood Count 3.56 M/uL (4.2-5.4) Hemoglobin 11.1 g/dL (12.0-16.0) Hematocrit 32.6 % (37-47) Mean Corpuscular Volume 91.6 fL (80-100) Mean Corpuscular Hemoglobin 31.2 pg (25-34) Mean Corpuscular Hemoglobin Concent 34.0 g/dl (32-36) Platelet Count 210 K/uL (130-400) Mean Platelet Volume 9.8 fL (7.4-10.4) Neutrophils (%) (Auto) 29.5 % Lymphocytes (%) (Auto) 50.2 % Monocytes (%) (Auto) 17.7 % Eosinophils (%) (Auto) 1.9 % Basophils (%) (Auto) 0.5 % Neutrophils # (Auto) 1.21 K/uL (1.4-6.5) Lymphocytes # (Auto) 2.07 K/uL (1.2-3.4) Monocytes # (Auto) 0.73 K/uL (0.11-0.59) Eosinophils # (Auto) 0.08 K/uL (0-0.5) Basophils # (Auto) 0.02 K/uL (0-0.2) RDW Standard Deviation 45.7 fL (36.4-46.3) RDW Coefficient of Variation 13.6 % (11.5-14.5) Immature Granulocyte % (Auto) 0.2 % Immature Granulocyte # (Auto) 0.01 K/uL (0.00-0.02) Anion Gap 9.0 mmol/L (3-11) Est Creatinine Clear Calc Drug Dose 35.4 ml/min Estimated GFR () 70.4 Estimated GFR (Non- 60.7 BUN/Creatinine Ratio 29.3 (10-20) Calcium Level 8.4 mg/dl (8.5-10.1) Triglycerides Level 74 mg/dl (0-150) Cholesterol Level 157 mg/dl (0-200) HDL Cholesterol 63 mg/dl LDL Cholesterol, Calculated 79 mg/dl VLDL Cholesterol, Calculated 15 mg/dl Cholesterol/HDL Ratio 2.5 Last 24 Hours Test 08/16/16 18:22 08/17/16 02:04 08/17/16 06:05 Total Creatine Kinase 83 U/L 71 U/L Creatine Kinase MB 1.9 ng/ml 1.3 ng/ml Creatine Kinase MB Ratio 2.3 1.8 Troponin I < 0.015 ng/ml < 0.015 ng/ml White Blood Count 4.12 K/uL Red Blood Count 3.56 M/uL Hemoglobin 11.1 g/dL Hematocrit 32.6 % Mean Corpuscular Volume 91.6 fL Mean Corpuscular Hemoglobin 31.2 pg Mean Corpuscular Hemoglobin Concent 34.0 g/dl Platelet Count 210 K/uL Mean Platelet Volume 9.8 fL Neutrophils (%) (Auto) 29.5 % Lymphocytes (%) (Auto) 50.2 % Monocytes (%) (Auto) 17.7 % Eosinophils (%) (Auto) 1.9 % Basophils (%) (Auto) 0.5 % Neutrophils # (Auto) 1.21 K/uL Lymphocytes # (Auto) 2.07 K/uL Monocytes # (Auto) 0.73 K/uL Eosinophils # (Auto) 0.08 K/uL Basophils # (Auto) 0.02 K/uL RDW Standard Deviation 45.7 fL RDW Coefficient of Variation 13.6 % Immature Granulocyte % (Auto) 0.2 % Immature Granulocyte # (Auto) 0.01 K/uL Sodium Level 136 mmol/L Potassium Level 3.7 mmol/L Chloride Level 102 mmol/L Carbon Dioxide Level 25 mmol/L Anion Gap 9.0 mmol/L Blood Urea Nitrogen 26 mg/dl Creatinine 0.87 mg/dl Est Creatinine Clear Calc Drug Dose 35.4 ml/min Estimated GFR () 70.4 Estimated GFR (Non- 60.7 BUN/Creatinine Ratio 29.3 Random Glucose 84 mg/dl Calcium Level 8.4 mg/dl Triglycerides Level 74 mg/dl Cholesterol Level 157 mg/dl HDL Cholesterol 63 mg/dl LDL Cholesterol, Calculated 79 mg/dl VLDL Cholesterol, Calculated 15 mg/dl Cholesterol/HDL Ratio 2.5 (Humaira Deshpande PA-C) Diagnostic Results This is an abnormal routine EEG secondary to mild to moderate diffuse background disorganization and slowing. There was no electrographic seizures or epileptiform discharges. Clinical Correlation This EEG indicates a mild to moderate encephalopathy of nonspecific etiology. (Humaira Deshpande PA-C) Assessment and Plan 86-year-old female presents emergency department with an episode of altered mental status metabolic encephalopathy ? TIA vs seizure vs baseline dementia. ? possible infectious source Metabolic encephalopathy-overall appears to be clearing mentally. Likely at baseline -Continue tele monitoring -MRI no acute change. -EEG with mild to moderate encephalopathy no seizure activity -? Could still be infectious -Await urine culture -check CBC in AM Irregular heart rhythm-EKG repeated. Sinus rhythm with PACs-essentially unchanged from yesterday -continue tele monitoring for one more day HTN -Continue Metoprolol XL 25 mg daily Asthma-stable -Continue Advair BID Dementia -Daniloelon was d/c'ed due to elevated BP -Continue Aricept 10 mg daily DVT prophylaxis -Heparin BID -TEDS, SCDs CODE STATUS -LEVEL I FULL CODE DISPO -hopefully home tomorrow. Did well with PT (Humaira Deshpande PA-C) 86-year-old female presents emergency department with an episode of altered mental status metabolic encephalopathy ? TIA vs seizure vs baseline dementia. ? possible infectious source Metabolic encephalopathy-overall appears to be clearing mentally. Likely at baseline MRI no acute change. EEG shows mild to moderate encephalopathy no seizure activity UA and cx are negative Irregular heart rhythm-EKG repeated. Sinus rhythm with PACs-essentially unchanged from yesterday continue tele monitoring for one more day HTN Continue Metoprolol XL 25 mg daily Asthma-stable continue Advair BID Dementia Exelon was d/c'ed due to elevated BP Continue Aricept 10 mg daily DVT prophylaxis Heparin sq BID CODE: FULL CODE DISPO: hopefully d/c home tomorrow. (Ruel Rivera MD)
[2016-08-17 15:42] VITALS: BP 149/73; PULSE 82; TEMP 36.6; O2SAT 94
[2016-08-17 19:53] VITALS: BP 152/75; PULSE 76; TEMP 36.6; O2SAT 94
[2016-08-18] VITALS (10 sets, daily range): BP systolic 106–195; BP diastolic 57–103; PULSE 66–96; TEMP 36.4–37.1; O2SAT 91–98
[2016-08-18 07:58] LABS: BASO % 0.2 %; BASO ABS # 0.01 K/uL (0-0.2); COMPLETE YES; EOS % 1.1 %; HEMATOCRIT 32.8 % (37-47); IG% 0.2 %; LYMPH % 43.1 %; LYMPH ABS # 1.95 K/uL (1.2-3.4); MEAN CELL VOLUME 91.6 fL (80-100); MEAN CORPUSCULAR HEMOGLOBIN 31.6 pg (25-34); MEAN CORPUSCULAR HGB CONC 34.5 g/dl (32-36); MEAN PLATELET VOLUME 9.8 fL (7.4-10.4); MONO % 17.7 %; NEUT % 37.7 %; PLATELET COUNT 200 K/uL (130-400); RED BLOOD COUNT 3.58 M/uL (4.2-5.4); WHITE BLOOD COUNT 4.52 K/uL (4.8-10.8)
[2016-08-18 08:40] LABS: BUN/CREATININE RATIO 24.2 (10-20); CALCIUM 8.3 mg/dl (8.5-10.1); CREATININE 0.69 mg/dl (0.60-1.20); POTASSIUM 3.3 mmol/L (3.5-5.1)
[2016-08-18] MEDS: DONEPEZIL HCL 10 MG TAB PO SCH (08:54)
[2016-08-18] MEDS: METOPROLOL SUCC 25MG EXT REL TAB PO SCH (08:54)
[2016-08-18] MEDS: FLUTICASONE/SALMETEROL 250/50 (ADVAIR) 14 PUFF/1 INHALER INH SCH ×2 (08:54→19:47)
[2016-08-18] MEDS: CALCIUM 600MG + VIT D 400 IU TAB PO SCH ×2 (08:54→19:47)
[2016-08-18] MEDS: HEPARIN SOD 5000 UNIT/0.5 ML CARP SQ SCH ×2 (08:55→20:00)
[2016-08-18] MEDS ORDERED: POTASSIUM CHLORIDE 20 MEQ/15 ML UDC PO STA (12:55)
--- NOTE | 2016-08-18 13:08 | Hospitalist Progress Note ---
Hospitalist Progress Note Date of Service Aug 18, 2016. (Humaira Deshpande PA-C) 08/18/16 agree with PA note (Ruel Rivera MD) Subjective Pt evaluation today including: conversation w/ patient, physical exam, chart review, lab review, review of studies, review of inpatient medication list Patient has no complaints this morning. Denies any chest pain, heart palpitations or shortness of breath. Denies any pain. Tolerating her diet. Additional Comments: 6 system review negative. Please see pertinent positives in the history of present illness section. (Humaira Deshpande PA-C) Pt evaluation today including: conversation w/ patient, physical exam, chart review, review of studies, review of inpatient medication list ROS is limited due to dementia Constitutional: No fever Respiratory: No cough Abdomen: No pain Neurologic: No memory loss (Ruel Rivear MD) Objective Vital Signs Date Time Temp Pulse Resp B/P Pulse Ox O2 Delivery O2 Flow Rate FiO2 08/18/16 12:00 36.4 66 18 167/83 95 Nasal Cannula 1.0 08/18/16 08:00 36.7 78 18 151/79 98 Room Air 08/18/16 08:00 Room Air 08/18/16 05:30 73 169/61 08/18/16 04:00 Room Air 08/18/16 03:06 36.9 72 22 180/69 91 Room Air 08/18/16 01:11 73 179/74 08/18/16 00:50 37.1 75 21 195/103 96 Room Air 08/17/16 23:59 Room Air 08/17/16 20:00 Room Air 08/17/16 19:53 36.6 76 18 152/75 94 Room Air 08/17/16 16:00 Room Air 08/17/16 15:42 36.6 82 18 149/73 94 Room Air (Humaira Deshpande PA-C) Physical Exam General Appearance: no apparent distress Neck: no JVD Respiratory/Chest: lungs clear Cardiovascular: + pertinent finding (occasionally irregular) Abdomen: normal bowel sounds, non tender, soft Extremities: no pedal edema, + pertinent finding (some mild tenderness noted over the right posterior calf. Mild tenderness over the Achilles. No erythema. Skin is intact.) Neurologic/Psychiatric: no motor/sensory deficits, + pertinent finding ( pleasantly demented. Answering some questions appropriately. No focal weakness noted.) Skin: warm/dry Lymphatic: no adenopathy (Humaira Deshpande PA-C) General Appearance: WD/WN, no apparent distress Eyes: normal inspection, EOMI ENT: hearing grossly normal, pharynx normal Neck: supple, no JVD Respiratory/Chest: lungs clear, no respiratory distress Cardiovascular: no edema, no gallop Abdomen: normal bowel sounds, soft Extremities: non-tender, normal inspection Neurologic/Psychiatric: alert Skin: normal color (Ruel Rivera MD) Laboratory Results Last 24 Hours Test 08/18/16 07:25 White Blood Count 4.52 K/uL Red Blood Count 3.58 M/uL Hemoglobin 11.3 g/dL Hematocrit 32.8 % Mean Corpuscular Volume 91.6 fL Mean Corpuscular Hemoglobin 31.6 pg Mean Corpuscular Hemoglobin Concent 34.5 g/dl Platelet Count 200 K/uL Mean Platelet Volume 9.8 fL Neutrophils (%) (Auto) 37.7 % Lymphocytes (%) (Auto) 43.1 % Monocytes (%) (Auto) 17.7 % Eosinophils (%) (Auto) 1.1 % Basophils (%) (Auto) 0.2 % Neutrophils # (Auto) 1.70 K/uL Lymphocytes # (Auto) 1.95 K/uL Monocytes # (Auto) 0.80 K/uL Eosinophils # (Auto) 0.05 K/uL Basophils # (Auto) 0.01 K/uL RDW Standard Deviation 45.5 fL RDW Coefficient of Variation 13.6 % Immature Granulocyte % (Auto) 0.2 % Immature Granulocyte # (Auto) 0.01 K/uL Sodium Level 136 mmol/L Potassium Level 3.3 mmol/L Chloride Level 102 mmol/L Carbon Dioxide Level 25 mmol/L Anion Gap 9.0 mmol/L Blood Urea Nitrogen 17 mg/dl Creatinine 0.69 mg/dl Est Creatinine Clear Calc Drug Dose 36.7 ml/min Estimated GFR () 92.0 Estimated GFR (Non- 79.4 BUN/Creatinine Ratio 24.2 Random Glucose 90 mg/dl Calcium Level 8.3 mg/dl (Humaira Deshpande PA-C) Assessment and Plan 86-year-old female presents emergency department with an episode of altered mental status metabolic encephalopathy ? TIA vs baseline dementia Metabolic encephalopathy-likely now baseline -MRI no acute change. -EEG with mild to moderate encephalopathy no seizure activity -Urine culture negative -Unfortunately, the patient's has not been in to evaluate her-but again appears she's at baseline Irregular heart rhythm-EKG repeated. Sinus rhythm with PACs-essentially unchanged from yesterday -Patient continued to have PACs and PVCs overnight. No A. fib noted. -Stable for transfer to medical floor Right posterior calf tenderness-?musculoskeletal -US LE Bilaterally r/o DVT Hypokalemia -KCl 40 po now HTN -Continue Metoprolol XL 25 mg daily Asthma-stable -Continue Advair BID Dementia -Exelon was d/c'ed due to elevated BP -Continue Aricept 10 mg daily DVT prophylaxis -Heparin BID -TEDS, SCDs CODE STATUS -LEVEL I FULL CODE DISPO -Awaiting placement (Humaira Deshpande, PATonoC) 86-year-old female presents emergency department with an episode of altered mental status metabolic encephalopathy ? TIA vs baseline dementia Metabolic encephalopathy-likely now baseline MRI no acute change. EEG with mild to moderate encephalopathy no seizure activity Urine culture negative Unfortunately, the patient's was admitted to the hospital as well and were unable to contact him Irregular heart rhythm-EKG repeated. Sinus rhythm with PACs-essentially unchanged from yesterday Patient continued to have PACs and PVCs overnight. No A. fib noted. Stable for transfer to medical floor Right posterior calf tenderness-?musculoskeletal US LE Bilaterally is negative for DVT Hypokalemia KCl 40 po now HTN Continue Metoprolol XL 25 mg daily Asthma-stable Continue Advair BID Dementia Exelon was d/c'ed due to elevated BP Continue Aricept 10 mg daily DVT prophylaxis Heparin sq BID CODE STATUS FULL CODE DISPO Awaiting placement (Ruel Rivera MD)
--- NOTE | 2016-08-18 14:20 | DIAGNOSTIC IMAGING REPORT ---
BILATERAL LOWER EXTREMITY VENOUS DOPPLER HISTORY: Bilateral calf pain. COMPARISON STUDY: None. FINDINGS: There is normal compressibility, flow, and augmentation within the bilateral lower extremity deep venous systems. IMPRESSION: No DVT within the right or left lower extremity. Electronically signed by: Josue Marley M.D. 08/18/2016 2:18 PM Dictated Date/Time: 08/18/2016 2:18 PM
[2016-08-18] MEDS: HydrALAZINE HCL 20 MG/ML VIAL IV. PRN ×2 (16:29→17:25)
[2016-08-19 00:36] VITALS: BP 111/65; PULSE 87; TEMP 37.2; O2SAT 96
[2016-08-19 06:53] LABS: BASO % 0.4 %; BASO ABS # 0.02 K/uL (0-0.2); COMPLETE YES; EOS % 0.5 %; HEMATOCRIT 35.5 % (37-47); IG% 0.2 %; LYMPH % 32.3 %; LYMPH ABS # 1.84 K/uL (1.2-3.4); MEAN CELL VOLUME 89.4 fL (80-100); MEAN CORPUSCULAR HEMOGLOBIN 31.2 pg (25-34); MEAN CORPUSCULAR HGB CONC 34.9 g/dl (32-36); MEAN PLATELET VOLUME 9.9 fL (7.4-10.4); MONO % 18.2 %; NEUT % 48.4 %; PLATELET COUNT 215 K/uL (130-400); RED BLOOD COUNT 3.97 M/uL (4.2-5.4)
[2016-08-19 07:27] LABS: BUN/CREATININE RATIO 22.1 (10-20); CALCIUM 8.5 mg/dl (8.5-10.1); CREATININE 0.94 mg/dl (0.60-1.20); POTASSIUM 3.3 mmol/L (3.5-5.1)
[2016-08-19] MEDS: FLUTICASONE/SALMETEROL 250/50 (ADVAIR) 14 PUFF/1 INHALER INH SCH (07:58)
[2016-08-19] MEDS: DONEPEZIL HCL 10 MG TAB PO SCH (07:58)
[2016-08-19] MEDS: METOPROLOL SUCC 25MG EXT REL TAB PO SCH (07:58)
[2016-08-19] MEDS: CALCIUM 600MG + VIT D 400 IU TAB PO SCH (07:58)
[2016-08-19 08:15] VITALS: BP 130/75; PULSE 82; TEMP 36.9; O2SAT 95
[2016-08-19] MEDS: HEPARIN SOD 5000 UNIT/0.5 ML CARP SQ SCH (08:21)
[2016-08-19] MEDS ORDERED: POTASSIUM CHLORIDE 20 MEQ/15 ML UDC PO STA (08:35)
[2016-08-19] MEDS ORDERED: ONDANSETRON INJ 2 MG/ML 2 ML VIAL IV PRN (09:45)
[2016-08-19] MEDS ORDERED: ARC10 PO (11:53)
--- NOTE | 2016-08-19 11:58 | Discharge Instructions ---
Discharge Instructions Admission Reason for Admission: Unspecified Altered Mental Status Discharge Discharge Diagnosis / Problem: altered mental status Discharge Goals Goal(s): Improve function Activity Recommendations Activity Limitations: resume your previous activity . Instructions / Follow-Up Instructions / Follow-Up You have been treated in the hospital for an episode of unresponsiveness. The cause of this is unclear. It could possible been a TIA or "mini stroke" but you have completely recovered An MRI and EEG were performed and no significant abnormalities were found Please continue your current medications as prescribed Please follow up with your primary care physician within one week of discharge Return to the emergency department if you have any of the following symptoms: -Fever of 102F or greater -Persistent vomiting - Persistent diarrhea -Lethargy -Chest pain -Shortness of breath -Severe confusion much worse than usual -uneven weakness of your arms or legs Current Hospital Diet Patient's current hospital diet: Regular Diet Discharge Diet Recommended Diet: Regular Diet Procedures Procedures Performed: MRI EEG Pending Studies Studies pending at discharge: no Medical Emergencies . Who to Call and When: Medical Emergencies: If at any time you feel your situation is an emergency, please call 911 immediately. . Non-Emergent Contact Non-Emergency issues call your: Primary Care Provider . . "Provider Documentation" section prepared by Humaira Deshpande. VTE Core Measure Inpt VTE Proph given/why not?: Unfractionated heparin POPEYE, Chao Gonzalez, SCD 's
[2016-08-19 12:05] VITALS: BP 130/75; PULSE 82; TEMP 36.9; O2SAT 95
--- NOTE | 2016-08-19 12:25 | Discharge Summary ---
Discharge Summary Admission Date: Aug 16, 2016 at 12:36 Discharge Date: Aug 19, 2016 Discharge Disposition: Home Principal Diagnosis: altered mental status Problems/Secondary Diagnoses: Hypertension Severe dementia Immunizations: Have You Had Influenza Vaccine: Yes Influenza Vaccine Date: May 14, 2008 History of Tetanus Vaccine?: Yes History of Pneumococcal: Yes History of Hepatitis B Vaccine: No Procedures: MRI EEG Ultrasound of the lower extremities (Humaira Deshpande PA-C) Medication Reconciliation New Medications: Donepezil HCl (Donepezil HCl) 10 Mg Tab 10 MG PO QAM, #30 TAB Continued Medications: Calcium (Caltrate) 600 Mg Tab 600 MG PO BID, TAB Fluticasone Prop/Salmeterol (Advair Diskus 250/50 Mcg *) Aerp 1 PUFF INH BID Metoprolol Succinate (Metoprolol Succinate ER) 25 Mg Tabcr 25 MG PO DAILY, #90 Zoledronic Acid (Reclast) 5 Mg/100 Ml Inj 1 DOSE INJ YEARLY Discontinued Medications: Rivastigmine Tartrate (EXELON 4.6MG/24 Hr) 4.6 Mg Tdsy 1 EA TD DAILY, PATCH Referrals At Discharge Follow up Referrals: Physician Referral - Within 1 Week with Leon Bustillo M.D. Discharge Exam patient has no complaints this morning. She denies any abdominal pain. No problems with her bowel movements. No chest pain, heart palpitations, dizziness or shortness of breath. Review of Systems: Constitutional: No fever Respiratory: No shortness of breath Cardiovascular: No chest pain Physical Exam: General Appearance: no apparent distress Neck: no JVD Respiratory/Chest: lungs clear Cardiovascular: + pertinent finding (occasionally irregular) Abdomen / GI: normal bowel sounds, non tender, soft Extremities: no pedal edema Neurologic/Psychiatric: alert (alert and oriented to person only) Skin: warm/dry (Humaira Deshpande PA-C) Hospital Course 86-year-old female presents emergency department with an episode of altered mental status, metabolic encephalopathy ? TIA vs baseline dementia Metabolic encephalopathy-etiology unclear. It is possible that she had a TIA versus her end-stage dementia. She is now at baseline. -MRI no acute change. -EEG with mild to moderate encephalopathy no seizure activity -Urine culture negative Irregular heart rhythm-EKG performed twice monitored on telemetry.. Sinus rhythm with PACs and PVCs, -No signs of A. fib Right posterior calf tenderness-?musculoskeletal -US LE Bilaterally negative for DVT Hypokalemia Repleted HTN -Continue Metoprolol XL 25 mg daily Asthma-stable -Continue Advair BID Dementia -Noel was d/c'ed due to elevated BP -Continue Aricept 10 mg daily DVT prophylaxis -Heparin BID -TEDS, SCDs CODE STATUS -LEVEL I FULL CODE DISPO -Discharged home with her who is her 24 hour caregiver Total Time Spent: Greater than 30 minutes This includes examination of the patient, discharge planning, medication reconciliation, and communication with other providers. (Humaira Deshpande PA-C) Discharge Instructions Please refer to the electronic Patient Visit Report (Discharge Instructions) for additional information. (Humaira Deshpande PA-C) Additional Copies To Leon Bustillo M.D. Reviewed: Pt Seen/Exam by Me (Chiara Viveros, ) History Pt has no concerns today. Denies CP, SOB. States she ate without issue. Agree with HPI/ROS as noted. (Chiara Viveros, ) General Appearance: WD/WN, no apparent distress Respiratory: normal breath sounds, no respiratory distress Cardiovascular: normal peripheral pulses, regular rate, rhythm Gastrointestinal: non tender, soft Extremities: non-tender, no pedal edema Neurologic/Psychiatric: alert, other (pleasant but does not answer questions regarding place and time. Knows her name) Skin Characteristics: normal color, warm/dry (Chiara Viveros, ) Assessment/Plan Agree with plan as outlined above Likely TIA PT/OT recs for SNF vs 24/7 supervised home care, however prefers pt to return home He was discharged today also, concern for readmission for this pt if he is also having health issues, but this is their preference after CM discussions. (Chiara Viveros, DO)
[2017-04-24] MEDS ORDERED: ASPI1CAP2 (11:11)
== END 2016-08-19 14:18 | disposition home or self-care (01) | DRG 947 ==
LOC: ENRESERVDT → ENRESERVTM → EDBD 08:40 → C.EDB 08:41 → C.MED 12:36 → EDBEDREQ 12:39 → C.MS4W 08-18 19:13
PROVIDERS: ADMIT Hospitalist; ATTEND Family Medicine
DX: R41.82 Altered mental status, unspecified (principal); G93.41 Metabolic encephalopathy; G45.9 Transient cerebral ischemic attack, unspecified; J45.909 Unspecified asthma, uncomplicated; F03.90 Unspecified dementia, unspecified severity, without behavioral disturbance, psychotic disturbance, mood disturbance, and anxiety; M81.0 Age-related osteoporosis without current pathological fracture; E87.6 Hypokalemia; R94.31 Abnormal electrocardiogram [ECG] [EKG]; I10 Essential (primary) hypertension; I49.3 Ventricular premature depolarization; M79.661 Pain in right lower leg; Z79.83 Long term (current) use of bisphosphonates; Z79.51 Long term (current) use of inhaled steroids; Z79.899 Other long term (current) drug therapy

== ENCOUNTER → 2017-03-06 | Outpatient (CLI) | payer BC ==
[~2017-03-06] MED LIST changes: +ARC10 PO; -ASPCH81X PO; +ASPI1CAP2; -KFL250 PO; -LSN10 PO; -RIVA4.6D TD
--- NOTE | 2017-03-06 14:31 | MAMMOGRAPHY REPORT ---
BILATERAL DIGITAL SCREENING MAMMOGRAM WITH CAD: 03/06/2017 CLINICAL HISTORY: Routine screening. TECHNIQUE: Current study was also evaluated with a Computer Aided Detection (CAD) system. Bilateral CC and MLO views were obtained. COMPARISON: Comparison is made to exams dated: 03/04/2016 mammogram, 03/02/2015 mammogram, 02/26/2014 m ammogram, 02/25/2013 mammogram, 02/23/2012 mammogram, and 02/21/2011 mammogram - [facility] enter. BREAST COMPOSITION: The tissue of both breasts is extremely dense, which lowers the sensitivity of m ammography. FINDINGS: No suspicious masses, calcifications, or areas of architectural distortion are noted in ei ther breast. There has been no significant interval change compared to prior exams. Scattered bilater al benign-appearing calcifications are not significantly changed. IMPRESSION: ACR BI-RADS CATEGORY 2: BENIGN There is no mammographic evidence of malignancy. A 1 year screening mammogram is recommended. The pa tient will receive written notification of the results. Approximately 10% of breast cancers are not detected with mammography. A negative mammographic report should not delay biopsy if a clinically suggestive mass is present. Nancy Murillo M.D. /:03/06/2017 12:20:26 Attending Technologist: Kasia Montes RT(R)(M), [facility] [employer]: Jenna Horta RT(R)(M), [facility] letter sent: Normal 1/2 BI-RADS Code: ACR BI-RADS Category 2: Benign
== END | disposition home or self-care (01) ==
LOC: C.MAMM 11:23
PROVIDERS: ATTEND Family Medicine
DX: Z12.31 Encounter for screening mammogram for malignant neoplasm of breast (principal)

== ENCOUNTER 2017-04-12 19:42 | Emergency (ER) | payer BC ==
[~2017-04-12] VITALS: Ht 154.9 cm; Wt 50.8 kg
[2017-04-12 19:42] VITALS: TEMP 36.9; Ht 154.9 cm; Wt 50.8 kg
[~2017-04-12 19:42] MED LIST changes: -ASPI1CAP2
[2017-04-12 20:34] VITALS: O2SAT 97
--- NOTE | 2017-04-12 21:04 | DIAGNOSTIC IMAGING REPORT ---
HEAD WITHOUT CONTRAST (CT) CLINICAL HISTORY: 87 years-old Female presenting with fall hit head. TECHNIQUE: Multidetector CT imaging of the head was performed without the use of intravenous contrast. IV contrast: None. A dose lowering technique was used consistent with the principles of ALARA (as low as reasonably achievable). COMPARISON: 08/16/2016. CT DOSE (mGy.cm): The estimated cumulative dose is 638.56 mGycm. 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 Proportional ventricular and sulcal prominence, likely age-related parenchymal volume loss. Greater ex vacuo dilatation of the left temporal horn relative to the right may suggest chronic left temporal lobe infarct or asymmetric atrophy. Periventricular and subcortical white matter hypoattenuation, nonspecific but likely indicative of chronic small vessel ischemic change. No mass effect or midline shift. No hemorrhage or acute territorial infarct. No extra-axial fluid collection. Paranasal sinuses and mastoid air cells clear. Calvarium intact. IMPRESSION: 1. No acute intracranial pathology. 2. Chronic changes as above. Electronically signed by: Hank Shearer M.D. 04/12/2017 9:02 PM Dictated Date/Time: 04/12/2017 8:59 PM
[2017-04-12 21:05] LABS: BASO % 0.4 %; BASO ABS # 0.02 K/uL (0-0.2); COMPLETE YES; EOS % 5.1 %; HEMATOCRIT 35.6 % (37-47); IG% 0.2 %; LYMPH % 37.7 %; LYMPH ABS # 1.77 K/uL (1.2-3.4); MEAN CELL VOLUME 94.9 fL (80-100); MEAN CORPUSCULAR HEMOGLOBIN 31.5 pg (25-34); MEAN CORPUSCULAR HGB CONC 33.1 g/dl (32-36); MEAN PLATELET VOLUME 9.8 fL (7.4-10.4); MONO % 16.2 %; NEUT % 40.4 %; PLATELET COUNT 249 K/uL (130-400); RED BLOOD COUNT 3.75 M/uL (4.2-5.4); WHITE BLOOD COUNT 4.69 K/uL (4.8-10.8)
--- NOTE | 2017-04-12 21:08 | DIAGNOSTIC IMAGING REPORT ---
CERVICAL SPINE W/O CLINICAL HISTORY: 87 years-old Female presenting with fall . TECHNIQUE: Multidetector CT of the cervical spine was performed without the use of intravenous contrast. IV contrast: None. A dose lowering technique was used consistent with the principles of ALARA (as low as reasonably achievable). COMPARISON: 05/20/2016. CT DOSE (mGy.cm): The estimated cumulative dose is 342.75 mGycm. 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 Straightening of normal cervical lordosis, likely degenerative in etiology. Vertebral bodies maintain grossly normal height. 2 mm of anterolisthesis of C2 on C3 and C3 on C4 as on prior exam. Multilevel degenerative changes with disc osteophyte complexes noted at nearly every level. This results in varying degrees of osseous neural foraminal narrowing. No significant osseous spinal canal narrowing is evident. 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 No acute fracture or subluxation. Paraspinal soft tissues within normal limits. Again demonstrated are apical consolidative reticular opacities with associated pleural calcification. IMPRESSION: 1. No acute osseous injury of the cervical spine. 2. Multilevel degenerative changes. 3. Persistent consolidative reticular opacities with associated pleural calcification at the apices. This could suggest cicatrizing atelectasis, although active infection cannot be excluded. Correlate clinically. Electronically signed by: Hank Shearer M.D. 04/12/2017 9:07 PM Dictated Date/Time: 04/12/2017 9:02 PM
[2017-04-12 21:13] LABS: PROTHROMBIN TIME (PATIENT) 10.5 SECONDS (9.0-12.0)
[2017-04-12 21:14] LABS: BUN/CREATININE RATIO 22.5 (10-20); CALCIUM 9.3 mg/dl (8.5-10.1); CREATININE 0.97 mg/dl (0.60-1.20); POTASSIUM 3.9 mmol/L (3.5-5.1)
--- NOTE | 2017-04-12 21:29 | DIAGNOSTIC IMAGING REPORT ---
RIGHT TIBIA/FIBULA 2 VIEWS ROUTINE CLINICAL HISTORY: 87 years-old Female presenting with rle pain, fall, skin tear. TECHNIQUE: Frontal and lateral views of the right lower leg were obtained. COMPARISON: None. FINDINGS: Knee joint and ankle mortise grossly congruent. No acute fracture or malalignment. Mild diffuse soft tissue swelling is suggested. A calcific fragment adjacent to the proximal fibular metaphysis may represent soft tissue calcification in the absence of a fracture. Irregularity of the anterior subcutaneous tissue overlying the distal tibial diaphysis, likely consistent with the site of injury. No subjacent bony abnormality. IMPRESSION: No acute osseous injury of the right lower leg. Electronically signed by: Hank Shearer M.D. 04/12/2017 9:27 PM Dictated Date/Time: 04/12/2017 9:25 PM
--- NOTE | 2017-04-12 21:52 | EMERGENCY ROOM VISIT NOTE ---
ED Visit Note 87-year-old female who I was asked by Dr. Blount, ED attending physician, to perform a right lower extremity wound evaluation after suffering 2 lacerations to the leg this evening. Please see Dr. Blount's dictation for further treatment and final disposition. WOUND ASSESSMENT: Examination shows 2 transverse lacerations across the right anterior leg. The proximal laceration measures 8 cm, and does have some extension into the underlying subcutaneous space. The epidermis and dermis are well attached, and do not easily approximate. The distal laceration measures 6.5 cm and involves only the epidermis without any extension into the underlying dermis or subcutaneous tissue. I initially attempted to approximate the wounds using Benzoin skin prep and Steri-Strips without success. It is again noted that the tissue is not easily approximated, therefore I do not feel that even attempted suture approximation of the proximal laceration will work because of tissue fragility. I suggested bacitracin dressings and wound care referral. Dr. Blount is in agreement with this plan of care.
--- NOTE | 2017-04-12 22:24 | DIAGNOSTIC IMAGING REPORT ---
CHEST ONE VIEW PORTABLE CLINICAL HISTORY: 87 years-old Female presenting with fell. TECHNIQUE: Portable upright AP view of the chest was obtained. COMPARISON: 08/16/2016. FINDINGS: Atherosclerosis of the aortic arch. Tortuosity of the descending thoracic aorta secondary to scoliosis. Hyperinflation, unchanged. No focal infiltrate. No large effusion or pneumothorax. Scoliotic curvature of the thoracolumbar spine. No displaced rib fracture is evident. Upper abdomen normal. IMPRESSION: Hyperinflation may relate to emphysema. No focal infiltrate. Electronically signed by: Hank Shearer M.D. 04/12/2017 10:22 PM Dictated Date/Time: 04/12/2017 10:21 PM
[2017-04-12 22:55] VITALS: BP 169/96; PULSE 95; O2SAT 95
--- NOTE | 2017-04-13 01:07 | EMERGENCY ROOM VISIT NOTE ---
History Report prepared by Marbin: Bibi Montenegro Under the Supervision of: Dr. Lee Blount D.O. First contact with patient: 20:04 Chief Complaint: BLEEDING Stated Complaint: FALL, SKIN TEAR & BLEEDING Nursing Triage Summary: Pt reportedly fell going from standing height going out to get the mail today. Unknown if pt hit head. Pt sustained two large skin tears to right anterior camara. On blood thinners. Bleeding controlled at this time. No other injuries noted. Pt appears to have expressive aphashia and EMS reports she is at her normal mental status. Pt unable to answer questions and says inappropriate words and is mumbling. Pt lives at home with . 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 The patient presents to the ED by EMS. EMS states that the patient is at baseline. She lives with her at home. Her is unsure if the patient fell or bumped into something. The history is limited due to the patient's dementia. and family note that patient is at baseline currently. notes no new complaints. 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 Past Medical & Surgical Medical Problems: (1) Hypertensive crisis (2) Rectal bleed Family History Patient reports no known family medical history. Social History Smoking Status: Unknown if Ever Smoked Drug Use: none Marital Status: Housing Status: lives with significant other Occupation Status: retired Current/Historical Medications Scheduled Calcium (Caltrate), 600 MG PO BID Donepezil HCl (Donepezil HCl), 10 MG PO QAM Fluticasone Prop/Salmeterol (Advair Diskus 250/50 Mcg *), 1 PUFF INH BID Metoprolol Succinate (Metoprolol Succinate ER), 25 MG PO DAILY Zoledronic Acid (Reclast), 1 DOSE INJ YEARLY Allergies Coded Allergies: Azithromycin (Verified Allergy, Intermediate, GENERALIZED RASH, 08/16/16) Erythromycin (Verified Allergy, Intermediate, GENERALIZED RASH, 08/16/16) Penicillins (Verified Allergy, Intermediate, GENERALIZED RASH; AMOXICILLIN , 08/16/16) Sulfamethoxazole (Verified Allergy, Intermediate, GENERALIZED RASH, 08/16/16 ) Trimethoprim (Verified Allergy, Intermediate, GENERALIZED RASH, 08/16/16) Animal Dander (Verified Allergy, Mild, WATERY EYES, ITCHY, 08/16/16) DOG, CAT, HORSE HAIR Doxycycline (Verified Allergy, Mild, unknown, 08/16/16) Grass (Verified Allergy, Mild, WATERY EYES, ITCHY, 08/16/16) POLLEN (Verified Allergy, Mild, WATERY EYES, ITCHY, 08/16/16) Tramadol (Verified Allergy, Mild, unknown, 08/16/16) Celecoxib (Verified Allergy, Unknown, ., 08/16/16) Ciprofloxacin (Unverified Allergy, Unknown, unknown, 08/16/16) Physical Exam Vital Signs Date Time Temp Pulse Resp B/P (MAP) Pulse Ox O2 Delivery O2 Flow Rate FiO2 04/12/17 22:55 95 24 169/96 95 04/12/17 22:36 81 19 95 04/12/17 22:06 79 31 96 04/12/17 22:01 146/86 04/12/17 21:36 76 20 97 04/12/17 21:31 80 18 143/92 96 Room Air 04/12/17 21:13 155/82 04/12/17 20:34 97 Room Air 04/12/17 20:31 127/82 04/12/17 20:12 75 18 96 04/12/17 20:07 114 04/12/17 20:02 109/68 04/12/17 19:59 145/72 04/12/17 19:42 36.9 79 18 121/80 99 Room Air Physical Exam GENERAL: sitting up in bed, disheveled, no acute distress, nontoxic HEAD: normocephalic, atraumatic EYE EXAM: normal conjunctiva, PERRL and EOM's grossly intact OROPHARYNX: no exudate, no erythema, lips, buccal mucosa, and tongue normal and mucous membranes are moist NECK: supple, no nuchal rigidity, no adenopathy, non-tender CHEST: Stable to compression anteriorly and posteriorly LUNGS: Clear to auscultation. Normal chest wall mechanics HEART: no murmurs, S1 normal and S2 normal ABDOMEN: abdomen soft, non-tender, normo-active bowel sounds, no masses, no rebound or guarding. BACK: Back is symmetrical on inspection and there is no deformity, no midline tenderness, no CVA tenderness. PELVIS: stable to compression anteriorly and posteriorly SKIN: no rashes and no bruising UPPER EXTREMITIES: full active and passive ROM without tenderness. LOWER EXTREMITIES: full active and passive ROM without tenderness. 6 cm laceration in oblique fashion with exposed tissue to the RLE which does not approximate. 8 cm laceration in oblique fashion to the RLE which does not approximate. NEURO EXAM: Alert and able to state name, not oriented to place or year, intermittently rambling, moving all extremities, nonfocal Medical Decision & Procedures ER Provider Diagnostic Interpretation: Radiology results as stated below per my review and the radiologist's interpretation: CHEST ONE VIEW PORTABLE CLINICAL HISTORY: 87 years-old Female presenting with fell. TECHNIQUE: Portable upright AP view of the chest was obtained. COMPARISON: 08/16/2016. FINDINGS: Atherosclerosis of the aortic arch. Tortuosity of the descending thoracic aorta secondary to scoliosis. Hyperinflation, unchanged. No focal infiltrate. No large effusion or pneumothorax. Scoliotic curvature of the thoracolumbar spine. No displaced rib fracture is evident. Upper abdomen normal. IMPRESSION: Hyperinflation may relate to emphysema. No focal infiltrate. Electronically signed by: Hank Shearer M.D. 04/12/2017 10:22 PM Dictated Date/Time: 04/12/2017 10:21 PM CERVICAL SPINE W/O CLINICAL HISTORY: 87 years-old Female presenting with fall . TECHNIQUE: Multidetector CT of the cervical spine was performed without the use of intravenous contrast. IV contrast: None. A dose lowering technique was used consistent with the principles of ALARA (as low as reasonably achievable). COMPARISON: 05/20/2016. CT DOSE (mGy.cm): The estimated cumulative dose is 342.75 mGycm. FINDINGS: [employer] topogram: Unremarkable. Straightening of normal cervical lordosis, likely degenerative in etiology. Vertebral bodies maintain grossly normal height. 2 mm of anterolisthesis of C2 on C3 and C3 on C4 as on prior exam. Multilevel degenerative changes with disc osteophyte complexes noted at nearly every level. This results in varying degrees of osseous neural foraminal narrowing. No significant osseous spinal canal narrowing is evident. 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 No acute fracture or subluxation. Paraspinal soft tissues within normal limits. Again demonstrated are apical consolidative reticular opacities with associated pleural calcification. IMPRESSION: 1. No acute osseous injury of the cervical spine. 2. Multilevel degenerative changes. 3. Persistent consolidative reticular opacities with associated pleural calcification at the apices. This could suggest cicatrizing atelectasis, although active infection cannot be excluded. Correlate clinically. Electronically signed by: Hank Shearer M.D. 04/12/2017 9:07 PM Dictated Date/Time: 04/12/2017 9:02 PM HEAD WITHOUT CONTRAST (CT) CLINICAL HISTORY: 87 years-old Female presenting with fall hit head. TECHNIQUE: Multidetector CT imaging of the head was performed without the use of intravenous contrast. IV contrast: None. A dose lowering technique was used consistent with the principles of ALARA (as low as reasonably achievable). COMPARISON: 08/16/2016. CT DOSE (mGy.cm): The estimated cumulative dose is 638.56 mGycm. FINDINGS: [employer] Teacher topogram: Unremarkable. Proportional ventricular and sulcal prominence, likely age-related parenchymal volume loss. Greater ex vacuo dilatation of the left temporal horn relative to the right may suggest chronic left temporal lobe infarct or asymmetric atrophy. Periventricular and subcortical white matter hypoattenuation, nonspecific but likely indicative of chronic small vessel ischemic change. No mass effect or midline shift. No hemorrhage or acute territorial infarct. No extra-axial fluid collection. Paranasal sinuses and mastoid air cells clear. Calvarium intact. IMPRESSION: 1. No acute intracranial pathology. 2. Chronic changes as above. Electronically signed by: Hank Shearer M.D. 04/12/2017 9:02 PM Dictated Date/Time: 04/12/2017 8:59 PM RIGHT TIBIA/FIBULA 2 VIEWS ROUTINE CLINICAL HISTORY: 87 years-old Female presenting with rle pain, fall, skin tear. TECHNIQUE: Frontal and lateral views of the right lower leg were obtained. COMPARISON: None. FINDINGS: Knee joint and ankle mortise grossly congruent. No acute fracture or malalignment. Mild diffuse soft tissue swelling is suggested. A calcific fragment adjacent to the proximal fibular metaphysis may represent soft tissue calcification in the absence of a fracture. Irregularity of the anterior subcutaneous tissue overlying the distal tibial diaphysis, likely consistent with the site of injury. No subjacent bony abnormality. IMPRESSION: No acute osseous injury of the right lower leg. Electronically signed by: Hank Shearer M.D. 04/12/2017 9:27 PM Dictated Date/Time: 04/12/2017 9:25 PM Laboratory Results 04/12/17 19:55 Red Blood Count 3.75, Mean Corpuscular Volume 94.9, Mean Corpuscular Hemoglobin 31.5, Mean Corpuscular Hemoglobin Concent 33.1, Mean Platelet Volume 9.8, Neutrophils (%) (Auto) 40.4, Lymphocytes (%) (Auto) 37.7, Monocytes (%) (Auto) 16.2, Eosinophils (%) (Auto) 5.1, Basophils (%) (Auto) 0.4, Neutrophils # (Auto ) 1.89, Lymphocytes # (Auto) 1.77, Monocytes # (Auto) 0.76, Eosinophils # (Auto ) 0.24, Basophils # (Auto) 0.02 04/12/17 19:55 Test 04/12/17 19:55 White Blood Count 4.69 K/uL (4.8-10.8) Red Blood Count 3.75 M/uL (4.2-5.4) Hemoglobin 11.8 g/dL (12.0-16.0) Hematocrit 35.6 % (37-47) Mean Corpuscular Volume 94.9 fL (80-100) Mean Corpuscular Hemoglobin 31.5 pg (25-34) Mean Corpuscular Hemoglobin Concent 33.1 g/dl (32-36) Platelet Count 249 K/uL (130-400) Mean Platelet Volume 9.8 fL (7.4-10.4) Neutrophils (%) (Auto) 40.4 % Lymphocytes (%) (Auto) 37.7 % Monocytes (%) (Auto) 16.2 % Eosinophils (%) (Auto) 5.1 % Basophils (%) (Auto) 0.4 % Neutrophils # (Auto) 1.89 K/uL (1.4-6.5) Lymphocytes # (Auto) 1.77 K/uL (1.2-3.4) Monocytes # (Auto) 0.76 K/uL (0.11-0.59) Eosinophils # (Auto) 0.24 K/uL (0-0.5) Basophils # (Auto) 0.02 K/uL (0-0.2) RDW Standard Deviation 47.9 fL (36.4-46.3) RDW Coefficient of Variation 13.7 % (11.5-14.5) Immature Granulocyte % (Auto) 0.2 % Immature Granulocyte # (Auto) 0.01 K/uL (0.00-0.02) Prothrombin Time 10.5 SECONDS (9.0-12.0) Prothromb Time International Ratio 1.0 (0.9-1.1) Anion Gap 3.0 mmol/L (3-11) Est Creatinine Clear Calc Drug Dose 31.4 ml/min Estimated GFR () 61.3 Estimated GFR (Non- 52.9 BUN/Creatinine Ratio 22.5 (10-20) Calcium Level 9.3 mg/dl (8.5-10.1) Total Bilirubin 0.3 mg/dl (0.2-1) Direct Bilirubin 0.1 mg/dl (0-0.2) Aspartate Amino Transf (AST/SGOT) 19 U/L (15-37) Alanine Aminotransferase (ALT/SGPT) 22 U/L (12-78) Alkaline Phosphatase 43 U/L (45-117) Total Protein 7.3 gm/dl (6.4-8.2) Albumin 3.3 gm/dl (3.4-5.0) Lipase 394 U/L (73-393) Laboratory results per my review. ECG Indication: other (fall) Rate (beats per minute): 74 Rhythm: sinus rhythm Findings: PVC (intermittent), Q waves (Inferior), other (normal axis) Comparison ECG Date: 17-Aug-2016 Change: no significant change ED Course ED COURSE: Vital signs were reviewed and showed normal vitals. The patients medical record was reviewed The above diagnostic studies were performed and reviewed. ED treatments and interventions as stated above. 2012: The patient was evaluated in room B10. A complete history and physical examination was performed. 2241: Upon reevaluation, the patient is resting comfortably. On multiple reevaluations, the patient has been playing with the monitor leads causing dysrhythmia on the monitor. I discussed my findings with the patient's and he understands and agrees with the treatment plan. appointment manager is setting the patient up with the wound care clinic. Based on the patients age, coexisting illnesses, exam and lab findings the decision to treat as an outpatient was made. The patient remained stable while under my care. The patient appeared well at the time of discharge. Medical Decision Differential diagnoses include major intracranial, cervical, spinal, thoracic, abdominal, pelvic and neurologic injury. Fracture, contusion, sprain, strain, laceration, abrasions included as well. Patient is an 87-year-old female who presents the ER following an unwitnessed fall. She is currently at her baseline. She has 2 lacerations on her right lower extremity. As this was unwitnessed CBC and BMP, LFTs and lipase was drawn. Lipase was slightly elevated at 394 off of a baseline of 393. INR was normal. No obvious outward signs of trauma on the head. CT head and neck were negative. Chest x-ray unremarkable. Patient and were updated at bedside. My PA evaluate the laceration was unable to approximate it. It was bandaged. Patient was seen by care management and they'll attempt to set up follow-up for the wound care clinic. On the monitor on several occasions patient was found to be tachycardic with an irregular rhythm however on evaluation patient was playing with the monitor leads. We did obtain an EKG which showed a sinus rhythm with intermittent PVCs. was at the bedside. Tetanus he thinks is up-to-date. Patient was discharged to follow-up with wound care clinic. Discussed with concerning signs and symptoms to watch out for. was instructed to follow up with their PCP and discussed with the their option to return to the ED at anytime for persistent or worsening symptoms. The appropriate anticipatory guidance and out-patient management, including indications for return to the emergency department, were explained at length to the and understood. Medication Reconcilliation Current Medication List: was personally reviewed by me Blood Pressure Screening Patient's blood pressure: Normal blood pressure Blood pressure disposition: Did not require urgent referral Impression Primary Impression: Fall Additional Impressions: Laceration PVC (premature ventricular contraction) Dementia Scribe Attestation The scribe's documentation has been prepared under my direction and personally reviewed by me in its entirety. I confirm that the note above accurately reflects all work, treatment, procedures, and medical decision making performed by me. Departure Information Dispostion Home / Self-Care Referrals Leon Bustillo M.D. (PCP) Forms HOME CARE DOCUMENTATION FORM, IMPORTANT VISIT INFORMATION Patient Instructions ED Laceration All, My [facility] Additional Instructions Please follow up with your primary care doctor with in the next 24 hours. Any worsening of your symptoms, please return to the ED immediately. This includes any fevers greater than 100.4, worsening pain, increased bleeding, passing out, chest pain, shortness breath, persistent nausea, vomiting, unable to eat or drink, or any other concerning signs or symptoms from your standpoint. Please change the dressing on the wound every 24 hours. If it starts rebleeding please hold pressure for 10 minutes. If bleeding does not stop please return to ER. If you notice any surrounding erythema to the laceration or spreading of redness he should receive a primary care doctor for possible infection. Please follow up with the wound care clinic. Problem Qualifiers Primary Impression: Fall Encounter type: initial encounter Qualified Codes: W19.XXXA - Unspecified fall, initial encounter Additional Impressions: Dementia Dementia type: unspecified type Dementia behavioral disturbance: without behavioral disturbance Qualified Codes: F03.90 - Unspecified dementia without behavioral disturbance
[2017-04-24] MEDS ORDERED: ASPI1CAP2 (11:11)
== END 2017-04-12 22:55 | disposition home or self-care (01) ==
LOC: EDBD 19:42 → C.EDB 19:44
DX: S81.811A Laceration without foreign body, right lower leg, initial encounter (principal); W19.XXXA Unspecified fall, initial encounter; I49.3 Ventricular premature depolarization; F03.90 Unspecified dementia, unspecified severity, without behavioral disturbance, psychotic disturbance, mood disturbance, and anxiety; I10 Essential (primary) hypertension